=== PATIENT | female | born 1950 | race Caucasian/White ===

== ENCOUNTER → 2017-11-02 | Outpatient (CLI) | payer MEDICARE, OTHER ==
[~2017-11-02] MED LIST: ARIMIDEX PO; ASPIR 8181 MG PO; AZITHROMYCIN 2250 MG PO; BENAZEPRIL HCL5 MG PO; CHEMO DRUGS; ESTRACE CREAM TOP; ESTRACE1 MG PO; FOLIC ACID1 MG PO; GLYCOTROL CAPS1 EACH PO; HYDROXYCHLOROQ200 M1 PO; KRILL OIL500 MG PO; LEVSIN0.125 MG PO; LORTAB 5-325 M1 EACH PO; LOTENSIN20 MG PO; MAGOX 400400 MG PO; MEDROLDOSEPACK PO; NAPROSYN500 MG PO; OMEPRAZOLE 20 M20 MG PO; ONDANSETRON HCL4 M2 PO; PEPCID20 MG PO; PHENERGAN 25 MG25 M1 PO; PRILOSEC 20 MG20 MG PO; STERIOID IM; TESSALON PERLE100 MG PO; TYLENOL325 MG PO; VITAMIN B-6100 MG PO; VITAMIN C500 MG/15 PO; VITAMIN D1000 UNI1; VITAMIN D35000 UNI1 PO; ZANAFLEX4 MG PO; ZPAK PO; [UNRECOGNIZED DRUG - OTHER] PO; [UNRECOGNIZED DRUG - OTHER] TOP
== END ==
LOC: M.RAD 14:36
DX: M25.551 Pain in right hip (principal)

== ENCOUNTER → 2017-12-21 | Outpatient (CLI) | payer MEDICARE, OTHER | LOC: M.RAD 09:00 | DX: M85.88 Other specified disorders of bone density and structure, other site (principal); Z78.0 Asymptomatic menopausal state ==

== ENCOUNTER 2018-01-10 13:08 | Emergency (ER) | payer MEDICARE, OTHER ==
[~2018-01-10] VITALS: Ht 157.5 cm; Wt 53.5 kg
[~2018-01-10 13:08] MED LIST changes: -AZITHROMYCIN 2250 MG PO; -LEVSIN0.125 MG PO; -PEPCID20 MG PO; -PRILOSEC 20 MG20 MG PO; -TESSALON PERLE100 MG PO; -VITAMIN C500 MG/15 PO
[2018-01-10 13:28] VITALS: BP 155/71
[2018-01-10] MEDS ORDERED: PRILOSEC 20 MG20 MG PO (13:37)
[2018-01-10] MEDS ORDERED: VITAMIN C500 MG/15 PO (13:37)
[2018-01-10] MEDS ORDERED: TESSALON PERLE100 MG PO (14:56)
[2018-01-10] MEDS ORDERED: AZITHROMYCIN 2250 MG PO (14:56)
== END 2018-01-10 15:11 | disposition home or self-care (01) ==
LOC: M.ERS 13:08
DX: J32.9 Chronic sinusitis, unspecified (principal); E78.00 Pure hypercholesterolemia, unspecified; M32.9 Systemic lupus erythematosus, unspecified; I10 Essential (primary) hypertension; Z90.710 Acquired absence of both cervix and uterus; Z85.43 Personal history of malignant neoplasm of ovary; Z88.1 Allergy status to other antibiotic agents; Z88.5 Allergy status to narcotic agent; Z88.8 Allergy status to other drugs, medicaments and biological substances

== ENCOUNTER → 2018-05-04 | Outpatient (CLI) | payer MEDICARE, OTHER ==
[~2018-05-04] MED LIST changes: +AZITHROMYCIN 2250 MG PO; +LEVSIN0.125 MG PO; +PEPCID20 MG PO; +PRILOSEC 20 MG20 MG PO; +TESSALON PERLE100 MG PO; +VITAMIN C500 MG/15 PO
== END ==
LOC: M.RAD 13:53
DX: Z12.31 Encounter for screening mammogram for malignant neoplasm of breast (principal)

== ENCOUNTER → 2018-05-24 | Outpatient (CLI) | payer MEDICARE, OTHER | LOC: M.RAD 09:59 | DX: M50.122 Cervical disc disorder at C5-C6 level with radiculopathy (principal); M48.02 Spinal stenosis, cervical region; M54.6 Pain in thoracic spine; M79.629 Pain in unspecified upper arm; I10 Essential (primary) hypertension; E78.00 Pure hypercholesterolemia, unspecified ==

== ENCOUNTER → 2018-05-25 | Outpatient (CLI) | payer MEDICARE, OTHER | LOC: M.ULTRA 05-19 09:04 | DX: M79.621 Pain in right upper arm (principal); R22.31 Localized swelling, mass and lump, right upper limb ==

== ENCOUNTER 2018-08-08 10:44 | Emergency (ER) | payer MEDICARE, OTHER ==
[~2018-08-08] VITALS: Ht 154.9 cm; Wt 53.5 kg
[~2018-08-08 10:44] MED LIST changes: -LEVSIN0.125 MG PO; -PEPCID20 MG PO
[2018-08-08 11:15] LABS: URINE BILIRUBIN NEGATIVE (Negative); URINE BLOOD NEGATIVE (Negative); URINE CLARITY CLEAR; URINE COLOR YELLOW; URINE GLUCOSE-RANDOM NEGATIVE (Negative); URINE KETONES NEGATIVE (Negative); URINE LEUKOCYTES-REFLEX NEGATIVE (Negative); URINE NITRITE-REFLEX NEGATIVE (Negative); URINE PROTEIN NEGATIVE (Negative); URINE SPECIFIC GRAVITY 1.025 (1.005-1.030); URINE UROBILINOGEN 0.2 E.U./dl (0.2-1.0)
[2018-08-08 11:20] LABS: ABSOLUTE BASOPHILS 0.1 thou/uL (0.0-0.2); ABSOLUTE EOSINOPHILS 0.1 thou/uL (0.0-0.7); ABSOLUTE LYMPHOCYTES 1.5 thou/uL (0.8-5.3); ABSOLUTE MONOCYTES 0.4 thou/uL (0.0-1.2); ABSOLUTE NEUTROPHILS 3.5 thou/uL (1.6-8.1); EOSINOPHILS 1.1 %; HEMATOCRIT 38.6 % (37.0-47.0); HEMOGLOBIN 12.7 gm/dL (12.0-15.0); LYMPHOCYTES 26.4 %; MCH 32.8 pg (26.0-34.0); MCV 99.5 fL (80.0-100.0); MONOCYTES 7.5 %; MPV 6.6 fl. (7.2-11.1); NUCLEATED RBCS 0 /100WBC; PLATELET COUNT* 215 thou/uL (150-400); RBC 3.88 mil/uL (4.20-5.00); RDW-CV 13.5 % (10.5-14.5); WBC 5.5 thou/uL (4.0-11.0)
[2018-08-08 11:28] LABS: CALCIUM 9.5 mg/dL (8.5-10.1); POTASSIUM 3.9 mmol/L (3.5-5.1)
[2018-08-08 11:33] LABS: ALBUMIN 3.9 g/dL (3.4-5.0); TOTAL BILIRUBIN 0.5 mg/dL (<0.1-1.0)
[2018-08-08 13:47] VITALS: BP 145/60
== END 2018-08-08 13:47 | disposition home or self-care (01) ==
LOC: M.ERS 10:44
PROVIDERS: Physician Assistant Surgical
DX: R10.31 Right lower quadrant pain (principal); R10.32 Left lower quadrant pain; R19.7 Diarrhea, unspecified; E78.00 Pure hypercholesterolemia, unspecified; M32.9 Systemic lupus erythematosus, unspecified; I10 Essential (primary) hypertension; Z88.1 Allergy status to other antibiotic agents; Z88.5 Allergy status to narcotic agent; Z88.8 Allergy status to other drugs, medicaments and biological substances; Z87.440 Personal history of urinary (tract) infections; Z90.710 Acquired absence of both cervix and uterus; Z85.43 Personal history of malignant neoplasm of ovary

== ENCOUNTER 2018-08-19 12:53 | Inpatient (IN) | payer MEDICARE, OTHER ==
[~2018-08-19] VITALS: Ht 154.9 cm; Wt 52.2 kg
[2018-08-19 12:55] VITALS: BP 100/80
[2018-08-19] MEDS ORDERED: LEVSIN0.125 MG PO (13:00)
[2018-08-19 13:14] LABS: ABSOLUTE LYMPHOCYTES 1.4 thou/uL (0.8-5.3); ABSOLUTE MONOCYTES 0.3 thou/uL (0.0-1.2); ABSOLUTE NEUTROPHILS 2.8 thou/uL (1.6-8.1); BASOPHILS 0.9 %; EOSINOPHILS 0.9 %; HEMOGLOBIN 12.8 gm/dL (12.0-15.0); LYMPHOCYTES 29.4 %; MCH 33.3 pg (26.0-34.0); MCHC 33.7 g/dL (28.0-37.0); MCV 98.9 fL (80.0-100.0); MONOCYTES 7.3 %; MPV 6.6 fl. (7.2-11.1); NUCLEATED RBCS 0 /100WBC; PLATELET COUNT* 225 thou/uL (150-400); POLYS 61.5 %; RBC 3.84 mil/uL (4.20-5.00); RDW-CV 13.6 % (10.5-14.5); WBC 4.6 thou/uL (4.0-11.0)
[2018-08-19 13:26] LABS: APTT 24.5 Seconds (25.0-31.3)
[2018-08-19 13:32] LABS: CALCIUM 9.4 mg/dL (8.5-10.1); CREATININE 0.9 mg/dL (0.6-1.3); POTASSIUM 3.9 mmol/L (3.5-5.1)
[2018-08-19 13:43] LABS: ALBUMIN 3.8 g/dL (3.4-5.0); CK-MB MASS 1.4 ng/mL (<0.5-3.6); MAGNESIUM 1.9 mg/dL (1.8-2.4); TOTAL BILIRUBIN 0.4 mg/dL (<0.1-1.0); TOTAL PROTEIN 6.8 g/dL (6.4-8.2); TROPONIN-I LEVEL 0.06 ng/mL (<0.06)
[2018-08-19 14:45] VITALS: BP 176/59
[2018-08-19 15:05] VITALS: BP 143/60
[2018-08-19] MEDS ORDERED: BENAZEPRIL HCL5 MG PO (15:32)
--- NOTE | 2018-08-19 16:44 | EXE ---
[place] [address] STRESS ECHOCARDIOGRAM Name: CYNTHIA DUMONT Room: [address] IN [facility]#: [id number] Admission: 08/19/18 Attend Phys: Amrik Caballero Discharge: Date of : 48 Date of Service: 08/19/18 1644 Report #: [id number] THIS REPORT FOR: //name// APPROVED REPORT Study performed: 08/19/2018 15:57:41 Exam: Stress Echocardiogram Indication: Chest pain Patient Location: ER Stress Nurse: Jill Mccord RN Supervising Physician: David Bautista MD Status: routine Ht: 5 ft 1 in HR: 83 bpm BP: 156/69 mmHg Rhythm: NSR Medical History Medications: ASA Cardiac Risk Factors: HTN, Hyperlipidemia, FHX of CAD Procedure The patient underwent an Exercise Stress Test using the Jamil Protocol. Blood pressure, heart rate, and EKG were monitored. An Echocardiogram was performed by computer service technician in four stages in quad fashion. At peak stress, four selected images were obtained and placed side by side with resting images for comparison. Stress Test Details Stress Test: Exercise stress testing was performed using a Jamil protocol. HR Resting HR: 83 bpm Max Heart Rate (APMHR): 151 bpm Max HR Achieved: 139 bpm Target HR (85% APMHR): 128 bpm % of APMHR: 92 Recovery HR: 81 bpm HR response to stress: Normal HR response to stress BP Resting BP: 156/69 mmHg Max BP: 182/56 mmHg Recovery BP: 145/72 [place] [address] STRESS ECHOCARDIOGRAM Name: CYNTHIA DUMONT Room: [address] IN [facility]#: [id number] Admission: 08/19/18 Attend Phys: Amrik Caballero Discharge: Date of : 48 Date of Service: 08/19/18 1644 Report #: [id number] Resting ECG: Sinus Rhythm Stress ECG: Sinus Tachycardia ST Change: None Arrhythmia: None Recovery ECG: Sinus Rhythm, normal EKG Recovery ST Change: None Recovery Arrhythmia: None Clinical Reason for Termination: Dyspnea, Maximal effort Exercise duration: 4 min 17 sec Exercise capacity: 6.15 METs The patient tolerated standard Jamil protocol exercise without significant symptoms. Stress ECG Conclusion The baseline 12-lead EKG show sinus rhythm with no significant ST or T wave abnormalities. EKGs obtained during and post exercise showed sinus rhythm and sinus tachycardia with no significant ST or T wave changes when compared to baseline. There were no stress-induced arrhythmias. Pre-Stress Echo The resting Echocardiogram showed normal left ventricular contractility with an estimated Ejection Fraction of about 55-60%. Post-Stress Echo The stress Echocardiogram showed normal left ventricular contractility with an estimated Ejection Fraction of about >70%. Clinical No clinical or ECG evidence for ischemia. Conclusion Clinical Response: Non-ischemic Exercise Capacity: Average Stress ECG Response: Non-ischemic Stress Echo Images: Non-ischemic The left ventricle is normal in size and wall thickness in both the rest and stress images. Other Information Study Quality: Excellent <Conclusion> [place] [address] STRESS ECHOCARDIOGRAM Name: CYNTIHA DUMONT Room: [address] IN [facility].#: [id number] Admission: 08/19/18 Attend Phys: Amrik Caballero Discharge: Date of : 48 Date of Service: 08/19/181643 Report #: [id number] The left ventricle is normal in size and wall thickness in both the rest and stress images. <ELECTRONICALLY SIGNED> By: Renzo Caballero MD, FACC 08/19/181643 43 43 Renzo Caballero MD, FACC /INF
--- NOTE | 2018-08-19 17:06 | EKG ---
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
--- NOTE | 2018-08-19 22:11 | NUR ---
ASSUMED PT CARE AT 1915 REPORT RECEIVED FROM NURSE . PT IS ALERT AWAKE ORIENTED X4. SINUS RYTHM ON THE SUPERVISOR PROPERTIES. ON RA AND O2 SATURATION REMAINS ABOVE 95%. PT DOES NOT HAVE ANY HS MEDICATION SCHEDULED. NO COMPLAINT OF PAIN EITHER. ASSESSEMENT PERFORMED. REFER TO CHARTING. IV LINES ARE PATENT. WILL CONTINUE TO MONITOR.
--- NOTE | 2018-08-19 23:34 | NUR ---
EKG PERFOREMED ORDERED. SINUS RYTHM
[2018-08-20 00:23] VITALS: BP 102/53
[2018-08-20 04:15] VITALS: BP 121/57
[2018-08-20 07:51] VITALS: BP 108/49
--- NOTE | 2018-08-20 09:32 | NUR ---
ASSUMED CARE OF PT THIS AM AROUND 0715- CENTRAL SUPPLY ASSISTANT IN PLACE ORDERED, TRACING SR- UPON ASSESSMENT PT NOTED TO BE RESTING IN BED, WATCHING TV- PT A&O X4- CONTINENT OF BOWEL AND BLADDER- UP AD-JOHNNA IN ROOM, STEADY GAIT NOTED- LCTA, RESP EVEN AND UN-LABORED- VSS, O2 SAT 100% ON RA- ABDOMEN SOFT/ROUND/NON-TENDER, BS X4 QUADS- LAST BM REPORTED 08/19/18- IV NOTED TO LEFT AC INTACT AND SL- GOOD PO INTAKE NOTED THIS AM WITH BREAKFAST- PT RATES DISCOMFORT 10/28 TO CHEST THIS AM-PT EXPRESSES WISHES TO BE D/C'D THIS AM- CALL LIGHT AND PERSONAL BELONGINGS WITH IN REACH- HOURLY ROUNDS IN PLACE R/T SAFETY/NEEDS- ALL NEEDS MET AT THIS TIME-WCTM
--- NOTE | 2018-08-20 11:08 | NUR ---
Pt is A&O. Resides at home with her . Active and independent. No DME. Hx of HH with [facility] in 2016. No hx of skilled. Goal is home at or. No needs anticipated.
[2018-08-20 12:00] VITALS: BP 157/55
--- NOTE | 2018-08-20 12:07 | EKG ---
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
[2018-08-20] MEDS ORDERED: PEPCID20 MG PO (12:33)
[2018-08-20 12:34] VITALS: BP 157/55
[2018-08-20 12:51] VITALS: BP 157/55
--- NOTE | 2018-08-20 12:51 | NUR ---
ORDERS RECIEVIED FOR OKAY TO D/C TO HOME THIS SHIFT PER - IV TO LEFT AC D/C'D PRIOR TO D/C ALONG WITH CLINICAL PARTNER PRIOR TO D/C- D/C EDUCATION/TEACHING GIVEN TO PT PRIOR TO D/C WITH ALL QUESTIONS AND CONCERNS ADDRESSED- F/U COMMUNICATED, WITH VERBAL UNDERSTANDING RECIEVIED PER PT-WRITTEN EDUCATION ALONG WITH SCRIPTS PROVIDED TO PT AT TIME OF D/C- PT BELONGING PACKED AND ACCOUNTED FOR PER PT AND -PT CURRNELTY GETTING DRESSED AWAITING TO D/C- ALL NEEDS MET AT THIS TIME-WCTM
== END 2018-08-20 13:09 | disposition home or self-care (01) | DRG 206 ==
LOC: M.ERS 12:53 → M.2W 14:23 → M.TBA-ER 14:23 → M.2W 14:55
PROVIDERS: Family Medicine; ADMIT Internal Medicine
DX: M94.0 Chondrocostal junction syndrome [Tietze] (principal); I10 Essential (primary) hypertension; E06.3 Autoimmune thyroiditis; Z90.710 Acquired absence of both cervix and uterus; Z85.43 Personal history of malignant neoplasm of ovary; Z88.6 Allergy status to analgesic agent; Z88.1 Allergy status to other antibiotic agents; Z88.8 Allergy status to other drugs, medicaments and biological substances; Z82.49 Family history of ischemic heart disease and other diseases of the circulatory system; Z83.3 Family history of diabetes mellitus; Z79.82 Long term (current) use of aspirin; Z79.899 Other long term (current) drug therapy; Z86.2 Personal history of diseases of the blood and blood-forming organs and certain disorders involving the immune mechanism

== ENCOUNTER → 2018-11-01 | Outpatient (CLI) | payer MEDICARE, OTHER ==
[~2018-11-01] MED LIST changes: +LEVSIN0.125 MG PO; +PEPCID20 MG PO
== END ==
LOC: M.RAD 14:28
DX: M79.601 Pain in right arm (principal); M25.521 Pain in right elbow; M25.511 Pain in right shoulder; M54.5 Low back pain; W19.XXXA Unspecified fall, initial encounter

== ENCOUNTER → 2018-12-15 | Outpatient (CLI) | payer MEDICARE, OTHER | LOC: M.MRI 12-13 13:30 | DX: M50.222 Other cervical disc displacement at C5-C6 level (principal); M48.02 Spinal stenosis, cervical region; M25.78 Osteophyte, vertebrae; M54.6 Pain in thoracic spine; M54.5 Low back pain; F41.9 Anxiety disorder, unspecified; Z88.8 Allergy status to other drugs, medicaments and biological substances ==

== ENCOUNTER → 2018-12-17 | Outpatient (CLI) | payer MEDICARE, OTHER | LOC: M.MRI 12-02 11:32 | DX: M54.5 Low back pain (principal); M54.6 Pain in thoracic spine; Z88.8 Allergy status to other drugs, medicaments and biological substances; Z88.5 Allergy status to narcotic agent; Z88.1 Allergy status to other antibiotic agents; Z88.7 Allergy status to serum and vaccine; Z85.43 Personal history of malignant neoplasm of ovary ==

== ENCOUNTER → 2019-02-09 | Outpatient (CLI) | payer MEDICARE, OTHER | LOC: M.CT 13:24 | DX: K57.30 Diverticulosis of large intestine without perforation or abscess without bleeding (principal); Z90.49 Acquired absence of other specified parts of digestive tract ==

== ENCOUNTER → 2019-06-09 | Outpatient (CLI) | payer MEDICARE, OTHER | LOC: M.RAD 13:20 | DX: R05 Cough (principal); R53.83 Other fatigue; R07.89 Other chest pain ==

== ENCOUNTER → 2019-07-20 | Outpatient (CLI) | payer MEDICARE, OTHER ==
[~2019-07-20] MED LIST changes: +CARTIA XT120 M1 PO; +HYOSCYAMINE0.125 M1 SUBLING; +PROPRANOLOL 20M20 M1 PO; +TAPAZOLE10 MG PO
== END ==
LOC: M.RAD 13:08
DX: M47.814 Spondylosis without myelopathy or radiculopathy, thoracic region (principal); M48.04 Spinal stenosis, thoracic region; M51.34 Other intervertebral disc degeneration, thoracic region; M81.8 Other osteoporosis without current pathological fracture; Z88.8 Allergy status to other drugs, medicaments and biological substances

== ENCOUNTER → 2019-07-22 | Outpatient (CLI) | payer MEDICARE, OTHER | LOC: M.ULTRA 07-21 09:30 | DX: R74.8 Abnormal levels of other serum enzymes (principal); D17.79 Benign lipomatous neoplasm of other sites; N28.89 Other specified disorders of kidney and ureter ==

== ENCOUNTER → 2019-08-03 | Outpatient (CLI) | payer MEDICARE, OTHER | LOC: M.ULTRA 14:05 | DX: E05.90 Thyrotoxicosis, unspecified without thyrotoxic crisis or storm (principal); E04.1 Nontoxic single thyroid nodule; R13.10 Dysphagia, unspecified; Z88.8 Allergy status to other drugs, medicaments and biological substances ==

== ENCOUNTER 2019-08-04 12:41 | Inpatient (IN) | payer MEDICARE, OTHER ==
[~2019-08-04] VITALS: Ht 154.9 cm; Wt 49.9 kg
[~2019-08-04 12:41] MED LIST changes: -CARTIA XT120 M1 PO; -HYOSCYAMINE0.125 M1 SUBLING; -PROPRANOLOL 20M20 M1 PO; -TAPAZOLE10 MG PO
[2019-08-04 12:44] VITALS: BP 144/66
[2019-08-04] MEDS ORDERED: HYOSCYAMINE0.125 M1 SUBLING (12:53)
[2019-08-04] MEDS ORDERED: CARTIA XT120 M1 PO (12:54)
[2019-08-04 13:49] LABS: ABSOLUTE LYMPHOCYTES 1.4 thou/uL (0.8-5.3); ABSOLUTE MONOCYTES 0.8 thou/uL (0.0-1.2); ABSOLUTE NEUTROPHILS 4.3 thou/uL (1.6-8.1); BASOPHILS 0.5 %; EOSINOPHILS 0.6 %; HEMATOCRIT 35.5 % (37.0-47.0); HEMOGLOBIN 12.1 gm/dL (12.0-15.0); LYMPHOCYTES 21.4 %; MCH 31.7 pg (26.0-34.0); MCHC 34.1 g/dL (28.0-37.0); MONOCYTES 11.7 %; MPV 7.3 fl. (7.2-11.1); NUCLEATED RBCS 0 /100WBC; PLATELET COUNT* 223 thou/uL (150-400); POLYS 65.8 %; RBC 3.81 mil/uL (4.20-5.00); RDW-CV 12.8 % (10.5-14.5); WBC 6.5 thou/uL (4.0-11.0)
[2019-08-04 13:56] LABS: CALCIUM 10.4 mg/dL (8.5-10.1); CREATININE 0.8 mg/dL (0.6-1.3); POTASSIUM 4.2 mmol/L (3.5-5.1)
[2019-08-04 14:07] LABS: ALBUMIN 3.4 g/dL (3.4-5.0); TOTAL BILIRUBIN 0.4 mg/dL (<0.1-1.0); TOTAL PROTEIN 6.7 g/dL (6.4-8.2)
[2019-08-04 14:33] LABS: INR 0.9; PROTIME 9.7 Seconds (9.20-11.50)
--- NOTE | 2019-08-04 14:34 | EKG ---
[place] [address] ELECTROCARDIOGRAM REPORT Name: CYNTHIA DUMONT Room: [facility]#: [id number] Admission: 08/04/19 Attend Phys: Discharge: Date of : 48 Report #: [id number] THIS REPORT FOR: //name// [facility] ED Test Date: 2019-08-04 Test Time: 12:50:22 Pat Name: CYNTHIA DUMONT Department: Room: Gender: F Engineer And Geologist: TEAGAN : 1950 Requested By: Tiffani Parsons Order Number: [id number] Reading MD: Renzo Caballero Measurements Intervals [place] Rate: 106 P: 71 [place]: 130 QRS: 26 QRSD: 79 T: 57 QT: 301 QTc: 400 Interpretive Statements Sinus tachycardia Possible left atrial enlargement Baseline wander in lead(s) II,III,aVF Compared to ECG 08/19/2018 23:11:59 Sinus rhythm no longer present Electronically Signed On 08-04-2019 14:34:04 CDT by Renzo Caballero [email or web address] <ELECTRONICALLY SIGNED> By: Renzo Caballero MD, [facility] 08/04/19 1434 1250 1250 Renzo Caballero MD, FAC /EPI
--- NOTE | 2019-08-04 17:50 | NUR ---
DINNER TRAY ORDERED FOR PT
--- NOTE | 2019-08-04 18:54 | NUR ---
REPORT GIVEN TO CLIVE RN
[2019-08-04 19:00] VITALS: BP 127/56
--- NOTE | 2019-08-04 19:15 | NUR ---
RECIEVED REPORT FROM ER AROUND 1849. PT ARRIVED TO TELE FLOOR AROUND 1909. PT SETTLED IN ROOM, SIDING INSTALLER PLACED, CALL LIGHT WITH IN REACH. REPORT GIVEN TO MAURICE FLORES.
[2019-08-04 21:30] VITALS: BP 145/43
[2019-08-05] VITALS: BP 120/46
[2019-08-05 04:00] VITALS: BP 152/59
--- NOTE | 2019-08-05 06:52 | NUR ---
ASSESSMENT COMPLETED CHARTED. VSS. SEE MAR. SEE CHARTING. PROGRESSING TOWARDS GOALS. HOURLY ROUNDING FOR SAFETY.
[2019-08-05 07:00] VITALS: BP 150/54
--- NOTE | 2019-08-05 10:19 | NUR ---
Pt is A&O. Resides at home with her . Active and independent. Pt has a cpap through [facility], but states that she doesn't sleep with it, plans to have another sleep study completed. Hx of [facility]. No hx of SNF. Pt current with outpt PT and plans to resume at tx. Goal is home at dc, no needs anticipated.
[2019-08-05 12:53] VITALS: BP 145/49
[2019-08-05] MEDS ORDERED: TAPAZOLE10 MG PO (13:46)
[2019-08-05] MEDS ORDERED: PROPRANOLOL 20M20 M1 PO (13:48)
[2019-08-05 13:50] VITALS: BP 145/49
== END 2019-08-05 14:15 | disposition home or self-care (01) | DRG 643 ==
LOC: M.ERS 12:41 → M.2W 15:52 → M.TBA-ER 15:52 → M.2W 19:12
PROVIDERS: Personal Emergency Response Attendant; ADMIT Internal Medicine
DX: E05.91 Thyrotoxicosis, unspecified with thyrotoxic crisis or storm (principal); I50.41 Acute combined systolic (congestive) and diastolic (congestive) heart failure; B17.9 Acute viral hepatitis, unspecified; K76.89 Other specified diseases of liver; I11.0 Hypertensive heart disease with heart failure; Z90.710 Acquired absence of both cervix and uterus; Z79.1 Long term (current) use of non-steroidal anti-inflammatories (NSAID); Z79.899 Other long term (current) drug therapy; Z88.5 Allergy status to narcotic agent; Z88.8 Allergy status to other drugs, medicaments and biological substances; Z88.1 Allergy status to other antibiotic agents

== ENCOUNTER → 2019-08-23 | Outpatient (CLI) | payer MEDICARE, OTHER ==
[~2019-08-23] MED LIST changes: +CARTIA XT120 M1 PO; +HYOSCYAMINE0.125 M1 SUBLING; +PROPRANOLOL 20M20 M1 PO; +TAPAZOLE10 MG PO
[2019-08-23 11:11] LABS: % SATURATION 23 % (20-39); IRON 50 ug/dL (50-175)
[2019-08-24 07:12] LABS: HEPATITIS B SURFACE AG Negative (Negative)
[2019-08-25 07:12] LABS: ANA INTERPRETATION Negative (Negative)
== END ==
LOC: M.LAB 09:06
PROVIDERS: Internal Medicine Gastroenterology
DX: D50.9 Iron deficiency anemia, unspecified (principal); R94.5 Abnormal results of liver function studies; Z85.43 Personal history of malignant neoplasm of ovary

== ENCOUNTER → 2019-09-01 | Outpatient (CLI) | payer MEDICARE, OTHER ==
[2019-09-01 12:07] LABS: ALBUMIN 2.7 g/dL (3.4-5.0); CALCIUM 9.2 mg/dL (8.5-10.1); CREATININE 0.8 mg/dL (0.6-1.3); POTASSIUM 4.2 mmol/L (3.5-5.1); TOTAL BILIRUBIN 0.3 mg/dL (<0.1-1.0); TOTAL PROTEIN 6.2 g/dL (6.4-8.2)
== END ==
LOC: M.RAD 11:18 → M.LAB 11:18
PROVIDERS: Internal Medicine Gastroenterology
DX: R05 Cough (principal); R09.89 Other specified symptoms and signs involving the circulatory and respiratory systems; D50.9 Iron deficiency anemia, unspecified; D56.9 Thalassemia, unspecified; R94.5 Abnormal results of liver function studies; R79.89 Other specified abnormal findings of blood chemistry

== ENCOUNTER → 2019-10-31 | Outpatient (CLI) | payer MEDICARE, OTHER ==
[2019-10-31 10:46] LABS: ALBUMIN 3.4 g/dL (3.4-5.0); DIRECT BILIRUBIN 0.1 mg/dL (<0.1-0.3); TOTAL BILIRUBIN 0.4 mg/dL (<0.1-1.0); TOTAL PROTEIN 6.5 g/dL (6.4-8.2)
== END ==
LOC: M.LAB 09:59
DX: R74.8 Abnormal levels of other serum enzymes (principal); R94.5 Abnormal results of liver function studies

== ENCOUNTER → 2019-11-14 | Outpatient (CLI) | payer MEDICARE, OTHER ==
[2019-11-14 14:47] LABS: ABSOLUTE EOSINOPHILS 0.1 thou/uL (0.0-0.7); ABSOLUTE LYMPHOCYTES 1.1 thou/uL (0.8-5.3); ABSOLUTE MONOCYTES 0.4 thou/uL (0.0-1.2); ABSOLUTE NEUTROPHILS 2.8 thou/uL (1.6-8.1); BASOPHILS 0.6 %; EOSINOPHILS 1.6 %; HEMATOCRIT 36.1 % (37.0-47.0); HEMOGLOBIN 12.3 gm/dL (12.0-15.0); LYMPHOCYTES 25.4 %; MCH 32.4 pg (26.0-34.0); MCHC 34.2 g/dL (28.0-37.0); MCV 94.7 fL (80.0-100.0); MONOCYTES 9.5 %; MPV 7.1 fl. (7.2-11.1); NUCLEATED RBCS 0 /100WBC; PLATELET COUNT* 218 thou/uL (150-400); POLYS 62.9 %; RBC 3.81 mil/uL (4.20-5.00); WBC 4.5 thou/uL (4.0-11.0)
[2019-11-14 15:00] LABS: ALBUMIN 3.6 g/dL (3.4-5.0); CALCIUM 9.1 mg/dL (8.5-10.1); POTASSIUM 4.3 mmol/L (3.5-5.1); TOTAL BILIRUBIN 0.3 mg/dL (<0.1-1.0); TOTAL PROTEIN 7.1 g/dL (6.4-8.2)
== END ==
LOC: M.CT 14:24
PROVIDERS: Internal Medicine
DX: K76.89 Other specified diseases of liver (principal); K57.30 Diverticulosis of large intestine without perforation or abscess without bleeding; N39.0 Urinary tract infection, site not specified; I70.0 Atherosclerosis of aorta; Z90.49 Acquired absence of other specified parts of digestive tract

== ENCOUNTER → 2019-12-22 | Outpatient (CLI) | payer MEDICARE, OTHER | LOC: M.RAD 09:38 | DX: M25.511 Pain in right shoulder (principal); M54.5 Low back pain; M54.2 Cervicalgia; G89.29 Other chronic pain ==

== ENCOUNTER → 2020-02-14 | Outpatient (CLI) | payer MEDICARE, OTHER | LOC: M.RAD 01-16 09:00 | DX: M85.88 Other specified disorders of bone density and structure, other site (principal); Z78.0 Asymptomatic menopausal state ==

== ENCOUNTER → 2020-02-21 | Outpatient (CLI) | payer MEDICARE, OTHER | LOC: M.LAB 13:23 | DX: E05.90 Thyrotoxicosis, unspecified without thyrotoxic crisis or storm (principal) ==

== ENCOUNTER → 2020-03-30 | Outpatient (CLI) | payer MEDICARE, OTHER | LOC: M.RAD 14:47 | PROVIDERS: ATTEND Registered Nurse Diabetes Educator | DX: Z12.31 Encounter for screening mammogram for malignant neoplasm of breast (principal) ==

== ENCOUNTER → 2020-04-16 | Outpatient (CLI) | payer MEDICARE, OTHER | END | disposition home or self-care (01) | LOC: M.RAD 12:42 | PROVIDERS: ATTEND Registered Nurse Diabetes Educator | DX: M25.551 Pain in right hip (principal); Z79.899 Other long term (current) drug therapy; Z98.890 Other specified postprocedural states ==

== ENCOUNTER → 2020-06-01 | Outpatient (CLI) | payer MEDICARE, OTHER | LOC: M.RAD 14:33 | PROVIDERS: ATTEND Registered Nurse Diabetes Educator | DX: C34.11 Malignant neoplasm of upper lobe, right bronchus or lung (principal); Z98.890 Other specified postprocedural states ==

== ENCOUNTER 2020-06-10 18:18 | Emergency (ER) | payer MEDICARE, OTHER ==
[~2020-06-10] VITALS: Ht 157.5 cm; Wt 49.4 kg
[2020-06-10 18:41] LABS: URINE BILIRUBIN NEGATIVE (Negative); URINE BLOOD NEGATIVE (Negative); URINE CLARITY CLEAR; URINE COLOR YELLOW; URINE GLUCOSE-RANDOM NEGATIVE (Negative); URINE KETONES NEGATIVE (Negative); URINE LEUKOCYTES-REFLEX TRACE (Negative); URINE NITRITE-REFLEX NEGATIVE (Negative); URINE PROTEIN NEGATIVE (Negative); URINE UROBILINOGEN 0.2 E.U./dl (0.2-1.0)
[2020-06-10 18:46] LABS: SQUAMOUS NONE SEEN /LPF (0-3); URINE WBC-REFLEX 0-5 Rare /HPF (0-5)
[2020-06-10 18:47] LABS: BACTERIA-REFLEX 1-9 Few /HPF (None Seen); CASTS None Seen /LPF (None Seen); CRYSTALS None Seen /LPF (None Seen); MUCUS None Seen strn/LPF (None Seen); URINE RBC None Seen /HPF (0-2)
[2020-06-10 18:52] LABS: ABSOLUTE BASOPHILS 0.1 thou/uL (0.0-0.2); ABSOLUTE EOSINOPHILS 0.1 thou/uL (0.0-0.7); ABSOLUTE LYMPHOCYTES 2.1 thou/uL (0.8-5.3); ABSOLUTE MONOCYTES 0.4 thou/uL (0.0-1.2); ABSOLUTE NEUTROPHILS 3.9 thou/uL (1.6-8.1); BASOPHILS 0.8 %; EOSINOPHILS 1.3 %; HEMATOCRIT 36.3 % (37.0-47.0); HEMOGLOBIN 12.4 gm/dL (12.0-15.0); MCH 32.8 pg (26.0-34.0); MCHC 34.1 g/dL (28.0-37.0); MCV 96.1 fL (80.0-100.0); MONOCYTES 6.7 %; MPV 6.7 fl. (7.2-11.1); NUCLEATED RBCS 0 /100WBC; PLATELET COUNT* 257 thou/uL (150-400); POLYS 59.2 %; RBC 3.78 mil/uL (4.20-5.00); RDW-CV 13.2 % (10.5-14.5); WBC 6.6 thou/uL (4.0-11.0)
[2020-06-10 19:03] LABS: CALCIUM 8.6 mg/dL (8.5-10.1); CREATININE 1.1 mg/dL (0.6-1.3); POTASSIUM 3.8 mmol/L (3.5-5.1)
[2020-06-10 19:08] LABS: ALBUMIN 3.9 g/dL (3.4-5.0); TOTAL BILIRUBIN 0.3 mg/dL (<0.1-1.0); TOTAL PROTEIN 6.7 g/dL (6.4-8.2)
[2020-06-10] MEDS ORDERED: FLAGYL500 M1 PO (20:57)
[2020-06-10] MEDS ORDERED: ONDANSETRON HCL4 M2 PO (20:57)
[2020-06-10 21:05] VITALS: BP 108/62
--- NOTE | 2020-06-11 09:33 | EKG ---
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 06/11/20 0933 1836 1836 Kris Aburto MD, [facility] /EPI
== END 2020-06-10 21:06 | disposition home or self-care (01) ==
LOC: M.ERS 18:18
PROVIDERS: Nurse Practitioner Psychiatric/Mental Health
DX: R10.84 Generalized abdominal pain (principal); I10 Essential (primary) hypertension; E78.00 Pure hypercholesterolemia, unspecified; Z90.710 Acquired absence of both cervix and uterus; Z87.440 Personal history of urinary (tract) infections; Z85.43 Personal history of malignant neoplasm of ovary; Z88.1 Allergy status to other antibiotic agents; Z88.6 Allergy status to analgesic agent; Z88.8 Allergy status to other drugs, medicaments and biological substances

== ENCOUNTER → 2020-06-26 | Outpatient (CLI) | payer MEDICARE, OTHER ==
[~2020-06-26] MED LIST changes: +FLAGYL500 M1 PO
== END ==
LOC: M.LAB 12:11
PROVIDERS: ATTEND Internal Medicine
DX: E05.90 Thyrotoxicosis, unspecified without thyrotoxic crisis or storm (principal)

== ENCOUNTER → 2020-07-03 | Outpatient (CLI) | payer MEDICARE, OTHER ==
[2020-07-03 09:18] LABS: CALCIUM 8.8 mg/dL (8.5-10.1); CREATININE 1.2 mg/dL (0.6-1.3); POTASSIUM 4.1 mmol/L (3.5-5.1)
== END ==
LOC: M.CT 08:46
PROVIDERS: ATTEND Registered Nurse Diabetes Educator
DX: K57.30 Diverticulosis of large intestine without perforation or abscess without bleeding (principal); I70.0 Atherosclerosis of aorta

== ENCOUNTER → 2020-09-26 | Outpatient (CLI) | payer MEDICARE, OTHER | LOC: M.CT 12:07 | PROVIDERS: ATTEND Internal Medicine | DX: K57.30 Diverticulosis of large intestine without perforation or abscess without bleeding (principal); Z87.19 Personal history of other diseases of the digestive system ==

== ENCOUNTER → 2020-10-26 | Outpatient (CLI) | payer MEDICARE, OTHER | LOC: M.CT 13:02 | PROVIDERS: ATTEND Registered Nurse Diabetes Educator | DX: K57.30 Diverticulosis of large intestine without perforation or abscess without bleeding (principal); I70.0 Atherosclerosis of aorta ==

== ENCOUNTER → 2020-11-09 | Outpatient (CLI) | payer MEDICARE, OTHER | LOC: M.LAB 11:52 | PROVIDERS: ATTEND Internal Medicine | DX: E05.90 Thyrotoxicosis, unspecified without thyrotoxic crisis or storm (principal) ==

== ENCOUNTER → 2020-12-06 | Outpatient (CLI) | payer MEDICARE, OTHER | LOC: M.CT 16:00 | PROVIDERS: ATTEND Registered Nurse Diabetes Educator | DX: K57.30 Diverticulosis of large intestine without perforation or abscess without bleeding (principal) ==

== ENCOUNTER → 2020-12-11 | Outpatient (CLI) | payer MEDICARE, OTHER | LOC: M.RAD 09:52 | PROVIDERS: ATTEND Registered Nurse Diabetes Educator | DX: M47.816 Spondylosis without myelopathy or radiculopathy, lumbar region (principal); M43.16 Spondylolisthesis, lumbar region; M54.5 Low back pain ==

== ENCOUNTER 2021-01-20 08:19 | Emergency (ER) | payer MEDICARE, OTHER ==
[~2021-01-20] VITALS: Ht 154.9 cm; Wt 43.5 kg
[2021-01-20 08:47] LABS: URINE BILIRUBIN NEGATIVE (Negative); URINE BLOOD NEGATIVE (Negative); URINE CLARITY CLEAR; URINE COLOR YELLOW; URINE GLUCOSE-RANDOM NEGATIVE (Negative); URINE KETONES NEGATIVE (Negative); URINE LEUKOCYTES-REFLEX NEGATIVE (Negative); URINE NITRITE-REFLEX NEGATIVE (Negative); URINE PROTEIN TRACE (Negative); URINE UROBILINOGEN 0.2 E.U./dl (0.2-1.0)
[2021-01-20 09:16] LABS: ABSOLUTE BASOPHILS 0.1 thou/uL (0.0-0.2); ABSOLUTE EOSINOPHILS 0.1 thou/uL (0.0-0.7); ABSOLUTE LYMPHOCYTES 0.6 thou/uL (0.8-5.3); ABSOLUTE MONOCYTES 0.5 thou/uL (0.0-1.2); ABSOLUTE NEUTROPHILS 2.2 thou/uL (1.6-8.1); BASOPHILS 1.9 %; EOSINOPHILS 3.1 %; HEMATOCRIT 34.2 % (37.0-47.0); HEMOGLOBIN 11.4 gm/dL (12.0-15.0); LYMPHOCYTES 16.7 %; MCH 33.4 pg (26.0-34.0); MCHC 33.4 g/dL (28.0-37.0); MCV 100.2 fL (80.0-100.0); MONOCYTES 14.1 %; MPV 6.8 fl. (7.2-11.1); NUCLEATED RBCS 0 /100WBC; PLATELET COUNT* 181 thou/uL (150-400); POLYS 64.2 %; RBC 3.41 mil/uL (4.20-5.00); RDW-CV 15.9 % (10.5-14.5); WBC 3.4 thou/uL (4.0-11.0)
[2021-01-20 09:20] LABS: CALCIUM 8.6 mg/dL (8.5-10.1); CREATININE 1.2 mg/dL (0.6-1.3); POTASSIUM 4.2 mmol/L (3.5-5.1)
[2021-01-20 09:25] LABS: ALBUMIN 3.6 g/dL (3.4-5.0); TOTAL BILIRUBIN 0.3 mg/dL (<0.1-1.0); TOTAL PROTEIN 6.8 g/dL (6.4-8.2)
[2021-01-20] MEDS ORDERED: AUGMENTIN 875-1 EACH PO (12:16)
[2021-01-20] MEDS ORDERED: PHENERGAN 25 MG25 M1 PO (12:16)
[2021-01-20] MEDS ORDERED: BENTYL 10 MG CA10 M1 PO (12:18)
[2021-01-20 12:30] VITALS: BP 165/87
[2021-01-20] MEDS ORDERED: METOPROLOL TART25 MG PO ×2 (23:37→23:38)
--- NOTE | 2021-01-21 11:22 | EKG ---
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: [place] : 1950 Requested By: Lexx Castellon Order Number: [id number] MD: David Bautista Measurements Intervals [place] Rate: 95 P: 62 [place]: 132 QRS: 36 QRSD: 77 T: 64 QT: 329 QTc: 414 Interpretive Statements Sinus rhythm Possible anteroseptal infarct, old Compared to ECG 06/10/2020 18:36:20 Possible anteroseptal scar persists Electronically Signed On 01-21-2021 11:22:28 CDT by David Bautista [email or web address] <ELECTRONICALLY SIGNED> By: David Bautista MD, [facility] 01/21/21 1122 10 10 David Bautista MD, [facility] /EPI
== END 2021-01-20 12:30 | disposition home or self-care (01) ==
LOC: M.ERS 08:19
PROVIDERS: Emergency Medicine Emergency Medical Services
DX: K52.9 Noninfective gastroenteritis and colitis, unspecified (principal); E78.00 Pure hypercholesterolemia, unspecified; M32.9 Systemic lupus erythematosus, unspecified; I10 Essential (primary) hypertension; Z88.1 Allergy status to other antibiotic agents; Z88.5 Allergy status to narcotic agent; Z88.8 Allergy status to other drugs, medicaments and biological substances; Z90.710 Acquired absence of both cervix and uterus; Z87.440 Personal history of urinary (tract) infections; Z85.43 Personal history of malignant neoplasm of ovary

== ENCOUNTER 2021-01-20 19:04 | Inpatient (IN) | payer MEDICARE, OTHER ==
[~2021-01-20] VITALS: Ht 154.9 cm; Wt 47.9 kg
--- NOTE | ~2021-01-20 | CON ---
[address] [address] CONSULTATION Name: MARCELTIFFANIEThomasCYNTHIA A Room: [place] [address] ADM IN [facility].#: [id number] Admission: 01/21/21 Attend Phys: Shea Cuellar MD Discharge: Date of : 48 Report #: [id number] THIS REPORT FOR: cc: Dasha Mcmillan Tammy RNP Khosla, Parveen K. MD ~ DATE OF SERVICE: 01/21/2021 HISTORY OF PRESENT ILLNESS: This is a 70-year-old female patient who was evaluated by me for an episode of speech difficulty she had. She had some dizziness, nausea, vomiting. She had some colitis at that time. Her symptoms are mostly resolved by this time. Review of systems indicated that she has been diagnosed with ovarian cancer. She said this is the second time and she is getting chemotherapy by an oncologist at [facility]. She does have some tinnitus in the year. She had undergone a CT scan of the head, which was reviewed and the patient showed chronic changes. I got it done with and without contrast after talking to the patient about potential side effects of contrast including dermatological complications, which are catastrophic. That showed a question of infarct, but the duration was not clear. I got an MRI of the brain done. MRI Indicates the patient has no acute changes. She does have chronic changes in the brain and there is no evidence of any metastasis. REVIEW OF SYSTEMS: A 14-point review of system was carried out and she feels back to normal. She does not complain of any eye symptoms. She does have some tinnitus. She is not having any chest pain or respiratory difficulty. She did have some abdominal symptom, which is better. She denies any symptoms. There is no musculoskeletal, constitutional, dermatological, hematological, psychiatric, throat, allergic symptom associated with present symptomatology. PAST MEDICAL HISTORY: Positive for ovarian carcinoma. FAMILY HISTORY: Unremarkable. SOCIAL HISTORY: She apparently does not abuse alcohol. PHYSICAL EXAMINATION: The patient is alert, responsive, able to follow simple and complex command. Her speech looks unremarkable to me. Memory and fund of knowledge is at her baseline. Cranial nerve examination 2-12 looks unremarkable. She moves all 4 extremities symmetrically. Her position sense is present. Her tone looks symmetrical. There is no meningeal sign. She is thinly built individual. Her blood pressure is 187/78, respiration is 17, pulse is 58, temperature is 96.4. Cardiac examination is unremarkable. No respiratory difficulty was noticed. No edema, cyanosis or jaundice is present. No thyroid masses present. [place] [address] CONSULTATION Name: CYNTHIA DUMONT Room: [place] [address] ADM IN .R.#: [id number] Admission: 01/21/21 Attend Phys: Shea Cuellar MD Discharge: Date of : 48 Report #: [id number] DIAGNOSTIC DATA: Her MCV is somewhat high at 101. CT and MRIs were reviewed and have been summarized above. IMPRESSION: This patient's MRI does not show any acute changes, but she does have chronic changes there. I am going to get a carotid Doppler done to see if there is any stenosis on the left side. I will also get a vitamin B12 done in this patient because MCV is trace high. She needs to be on antiplatelet therapy as well as statin. If carotid Doppler shows some abnormality, then we may consider intervention, but otherwise, a combination of antiplatelet therapy and statin will be the treatment of choice. Thank you very much for this referral. I saw the patient this evening and spent more than 50 minutes of time taking care of her and majority was spent counseling, coordinating, and reviewing her imaging studies, etc. By: 1544 2038Rah Randall MD /nt
[~2021-01-20 19:04] MED LIST changes: +AUGMENTIN 875-1 EACH PO; +BENTYL 10 MG CA10 M1 PO
[2021-01-20 19:10] VITALS: BP 195/100
[2021-01-20 21:04] LABS: HEMATOCRIT 34.6 % (37.0-47.0); HEMOGLOBIN 11.4 gm/dL (12.0-15.0); MCH 33.2 pg (26.0-34.0); MCHC 32.8 g/dL (28.0-37.0); MCV 101.2 fL (80.0-100.0); RBC 3.42 mil/uL (4.20-5.00); RDW-CV 16.4 % (10.5-14.5); WBC 4.9 thou/uL (4.0-11.0)
[2021-01-20 21:05] LABS: CALCIUM 8.8 mg/dL (8.5-10.1); CREATININE 1.2 mg/dL (0.6-1.3); POTASSIUM 3.9 mmol/L (3.5-5.1)
[2021-01-20 22:40] VITALS: BP 170/80
[2021-01-20 23:00] VITALS: BP 185/65
[2021-01-20] MEDS ORDERED: METOPROLOL TART25 MG PO ×2 (23:37→23:38)
[2021-01-21] VITALS (7 sets, daily range): BP systolic 103–222; BP diastolic 32–124
[2021-01-21 10:27] LABS: CHOLESTEROL 189 mg/dL (<200); HDL CHOLESTEROL 56 mg/dL (>40); LDL CHOLESTEROL 117 mg/dL (<100); TC:HDL 3.4 Ratio (Not establshd); TRIGLYCERIDE 80 mg/dL (<150); VLDL 16 mg/dL (<40)
[2021-01-21 10:28] LABS: SERUM ASSESSMENT Clear
--- NOTE | 2021-01-21 11:20 | EKG ---
[place] [address] ELECTROCARDIOGRAM REPORT Name: SURYNAVCYNTHIA Vanessa Room: [place] [address] ADM IN [facility].#: [id number] Admission: 01/21/21 Attend Phys: Shea Cuellar MD Discharge: Date of : 48 Date of Service: 01/20/21 0846 Report #: [id number] THIS REPORT FOR: //name// [facility] ED Test Date: 2021-01-20 Test Time: 08:46:23 Pat Name: CYNTHIA DUMONT Department: Room: [facility] Gender: F Senior Director Insight: SHERLYN : 1950 Requested By: Tiffani Parsons Order Number: [id number] Suresh MD: David Bautista Measurements Intervals [place] Rate: 79 P: 91 [place]: 132 QRS: 57 QRSD: 78 T: 63 QT: 380 QTc: 436 Interpretive Statements Sinus rhythm Compared to ECG 06/10/2020 18:36:20 No significant changes Electronically Signed On 01-21-2021 11:20:07 CDT by David Bautista [email or web address] <ELECTRONICALLY SIGNED> By: David Bautista MD, FACC 01/21/21 1120 0846 0846 David Bautista MD, [facility] /EPI
--- NOTE | 2021-01-21 13:59 | 2DMMODE ---
[place] [address] 2 D/M-MODE ECHOCARDIOGRAM Name: CYNTHIA DUMONT Room: [facility] ADM IN [place]#: [id number] Admission: 01/21/21 Attend Phys: Shea Cuellar MD Discharge: Date of : 48 Date of Service: 01/21/21 1359 Report #: [id number] THIS REPORT FOR: cc: Dasha Mcmillan Tammy RNP Holkins,David Bentiez MD [facility] ~ APPROVED REPORT Study performed: 01/21/2021 12:05:02 EXAM: Comprehensive 2D, Doppler, and color-flow Echocardiogram Patient Location: In-Patient Room #: [facility] Status: routine BSA: 1.39 HR: 60 bpm BP: 186/73 mmHg Rhythm: NSR Other Information Study Quality: Good Indications CVA/TIA Echo Enhancing Agent Indication: Rule out Shunt Agent(s) / Amount(s) Used: Agitated Saline 10 cc 2D Dimensions IVSd: 9.99 (7-11mm) LVOT Diam: 19.57 (18-24mm) LVDd: 45.69 mm PWd: 8.93 (7-11mm) Ascending Ao: 27.97 (22-36mm) LVDs: 26.42 (25-40mm) Aortic Root: 26.31 mm Volumes Left Atrial Volume (Systole) LA ESV Index: 21.80 mL/m2 Aortic Valve AoV Peak Cristino.: 1.14 m/s AO Peak Gr.: 5.22 mmHg LVOT Max P.41 mmHg AO Mean Gr.: 2.85 mmHg LVOT Mean P.20 [place] [address] 2 D/M-MODE ECHOCARDIOGRAM Name: CYNTHIA DUMONT Room: [address] IN [facility]#: [id number] Admission: 01/21/21 Attend Phys: Shea Cuellar MD Discharge: Date of : 48 Date of Service: 01/21/21 1359 Report #: [id number] LVOT Max V: 0.78 m/s AO V2 VTI: 26.08 cm LVOT Mean V: 0.50 m/s ABAD (VTI): 2.36 cm2 LVOT V1 VTI: 20.46 cm Mitral Valve E/A Ratio: 0.94 MV Decel. Time: 196.83 ms MV E Max Cristino.: 0.66 m/s MV PHT: 57.08 ms MVA (PHT): 3.85 cm2 TDI E/Lateral E': 8.25 E/Medial E': 7.33 Medial E' Cristino.: 0.09 m/s Lateral E' Cristino.: 0.08 m/s Pulmonary Valve PV Peak Cristino.: 0.79 m/s PV Peak Gr.: 2.51 mmHg Tricuspid Valve RAP Estimate: 5.00 mmHg TR Peak Gr.: 20.23 mmHg RVSP: 25.00 mmHg PA Pressure: 25.00 mmHg Left Ventricle The left ventricle is normal size. There is normal LV segmental wall motion. There is normal left ventricular wall thickness. Left ventricular systolic function is normal. The left ventricular ejection fraction is within the normal range. LVEF is 55-60%. The left ventricular diastolic function is normal. Right Ventricle The right ventricle is normal size. The right ventricular systolic function is normal. Atria The left atrium size is normal. The interatrial septum is intact with no evidence for an atrial septal defect. The right atrium size is normal. Aortic Valve Mild aortic valve sclerosis. No aortic regurgitation is present. There is no aortic valvular stenosis. Mitral Valve The mitral valve is normal in structure. [place] [address] 2 D/M-MODE ECHOCARDIOGRAM Name: CYNTHIA DUMONT Room: [address] IN .R.#: [id number] Admission: 01/21/21 Attend Phys: Shea Cuellar MD Discharge: Date of : 48 Date of Service: 01/21/21 1359 Report #: [id number] No evidence of mitral valve stenosis. Tricuspid Valve The tricuspid valve is normal in structure. No pulmonary hypertension. Trace tricuspid regurgitation. Pulmonic Valve The pulmonary valve is normal in structure. There is no pulmonic valvular regurgitation. Great Vessels The aortic root is normal in size. IVC is normal in size and collapses >50% with inspiration. Pericardium There is no pericardial effusion. <Conclusion> The left ventricle is normal size. Left ventricular systolic function is normal. The left ventricular ejection fraction is within the normal range. LVEF is 55-60%. The left ventricular diastolic function is normal. The right ventricle is normal size. The left atrium size is normal. Mild aortic valve sclerosis. No aortic regurgitation is present. There is no aortic valvular stenosis. The mitral valve is normal in structure. The tricuspid valve is normal in structure. IVC is normal in size and collapses >50% with inspiration. There is no pericardial effusion. There is normal LV segmental wall motion. The interatrial septum is intact with no evidence for an atrial septal defect. <ELECTRONICALLY SIGNED> By: David Bautista MD, FACC 01/21/21 1359 1359 1359 David Bautista MD, FACC /INF
[2021-01-22] VITALS (8 sets, daily range): BP systolic 125–201; BP diastolic 61–88
[2021-01-22 02:06] LABS: GLYCOHEMOGLOBIN (HGB A1C) 5.3 % (4.8-5.6)
[2021-01-22 04:51] LABS: ABSOLUTE EOSINOPHILS 0.2 thou/uL (0.0-0.7); ABSOLUTE LYMPHOCYTES 1.2 thou/uL (0.8-5.3); ABSOLUTE MONOCYTES 0.5 thou/uL (0.0-1.2); ABSOLUTE NEUTROPHILS 2.8 thou/uL (1.6-8.1); BASOPHILS 0.9 %; EOSINOPHILS 4.6 %; HEMATOCRIT 29.9 % (37.0-47.0); HEMOGLOBIN 10.2 gm/dL (12.0-15.0); LYMPHOCYTES 24.8 %; MCHC 34.1 g/dL (28.0-37.0); MCV 99.7 fL (80.0-100.0); NUCLEATED RBCS 0 /100WBC; PLATELET COUNT* 158 thou/uL (150-400); POLYS 58.7 %; RDW-CV 16.5 % (10.5-14.5); WBC 4.7 thou/uL (4.0-11.0)
[2021-01-22 04:53] LABS: ALBUMIN 3.1 g/dL (3.4-5.0); CALCIUM 8.6 mg/dL (8.5-10.1); CREATININE 1.1 mg/dL (0.6-1.3); POTASSIUM 3.7 mmol/L (3.5-5.1); TOTAL BILIRUBIN 0.3 mg/dL (<0.1-1.0); TOTAL PROTEIN 5.8 g/dL (6.4-8.2)
[2021-01-23 04:00] VITALS: BP 165/65
[2021-01-23 08:00] VITALS: BP 189/94
[2021-01-23 09:45] VITALS: BP 152/58
[2021-01-23] MEDS ORDERED: LOTENSIN20 MG PO (10:01)
[2021-01-23] MEDS ORDERED: LIPITOR 40 MG T40 M1 PO (10:01)
[2021-01-23] MEDS ORDERED: AUGMENTIN 875-1 EACH PO (10:01)
[2021-01-23] MEDS ORDERED: ADULT LOW DOSE81 MG PO (10:01)
[2021-01-23] MEDS ORDERED: CULTURELLE KID1 EAC1 PO (11:32)
[2021-01-23] MEDS ORDERED: ONDANSETRON HCL4 M2 PO (11:32)
[2021-01-23 11:40] VITALS: BP 152/58
== END 2021-01-23 12:35 | disposition home or self-care (01) | DRG 65 ==
LOC: M.ERS 19:04 → M.TBA-ER 21:23 → M.ORTHSURG 22:50 → M.2W 01-21 09:31
PROVIDERS: Internal Medicine; Personal Emergency Response Attendant; ADMIT Family Medicine; ATTEND Family Medicine
DX: I63.89 Other cerebral infarction (principal); A04.9 Bacterial intestinal infection, unspecified; E44.1 Mild protein-calorie malnutrition; I16.1 Hypertensive emergency; E78.00 Pure hypercholesterolemia, unspecified; H93.11 Tinnitus, right ear; I10 Essential (primary) hypertension; Z20.822 Contact with and (suspected) exposure to COVID-19; Z85.43 Personal history of malignant neoplasm of ovary; Z92.21 Personal history of antineoplastic chemotherapy; Z88.1 Allergy status to other antibiotic agents; Z88.5 Allergy status to narcotic agent; Z88.8 Allergy status to other drugs, medicaments and biological substances; Z79.899 Other long term (current) drug therapy; Z90.710 Acquired absence of both cervix and uterus; Z68.20 Body mass index [BMI] 20.0-20.9, adult

== ENCOUNTER → 2021-02-04 | Outpatient (CLI) | payer MEDICARE, OTHER ==
[~2021-02-04] MED LIST changes: +ADULT LOW DOSE81 MG PO; +CULTURELLE KID1 EAC1 PO; +LIPITOR 40 MG T40 M1 PO; +METOPROLOL TART25 MG PO
[2021-02-04 12:05] LABS: APTT 25.4 Seconds (25.0-31.3); INR 0.9
== END ==
LOC: M.LAB 11:00
PROVIDERS: ATTEND Internal Medicine Interventional Cardiology
DX: R00.2 Palpitations (principal)

== ENCOUNTER 2021-02-10 10:26 | Inpatient (IN) | payer MEDICARE, OTHER ==
[~2021-02-10] VITALS: Ht 154.9 cm; Wt 45.4 kg
--- NOTE | ~2021-02-10 | PROC ---
[address] [address] PROCEDURE REPORT Name: CYNTHIA DUMONT Room: [address] IN .#: [id number] Admission: 02/10/21 Attend Phys: Alvaro Osei MD Discharge: Date of : 48 Report #: [id number] THIS REPORT FOR: cc: Dasha Mcmillan Tammy RNP [facility],Medical Records Staff ~ For GI report, please see the Provation report in Perceptive 7 content. By: 1442Medical Records Staff JOSE MANUEL /DIEGO
[~2021-02-10 10:26] MED LIST changes: +NOXIFOL-D32500 UNIT PO; -VITAMIN D35000 UNI1 PO
[2021-02-10 10:35] VITALS: BP 187/62
[2021-02-10 11:18] LABS: ABSOLUTE EOSINOPHILS 0.3 thou/uL (0.0-0.7); ABSOLUTE LYMPHOCYTES 0.9 thou/uL (0.8-5.3); ABSOLUTE MONOCYTES 0.4 thou/uL (0.0-1.2); ABSOLUTE NEUTROPHILS 2.9 thou/uL (1.6-8.1); BASOPHILS 1.1 %; EOSINOPHILS 6.7 %; HEMATOCRIT 34.9 % (37.0-47.0); HEMOGLOBIN 11.5 gm/dL (12.0-15.0); LYMPHOCYTES 19.3 %; MCH 34.2 pg (26.0-34.0); MCHC 32.9 g/dL (28.0-37.0); MONOCYTES 8.2 %; MPV 8.1 fl. (7.2-11.1); NUCLEATED RBCS 0 /100WBC; PLATELET COUNT* 183 thou/uL (150-400); POLYS 64.7 %; RBC 3.36 mil/uL (4.20-5.00); WBC 4.5 thou/uL (4.0-11.0)
[2021-02-10 11:32] LABS: CREATININE 0.9 mg/dL (0.6-1.3); POTASSIUM 4.2 mmol/L (3.5-5.1)
[2021-02-10 11:37] LABS: ALBUMIN 3.6 g/dL (3.4-5.0); TOTAL BILIRUBIN 0.4 mg/dL (<0.1-1.0); TOTAL PROTEIN 6.7 g/dL (6.4-8.2)
[2021-02-10 12:49] LABS: URINE BILIRUBIN NEGATIVE (Negative); URINE BLOOD NEGATIVE (Negative); URINE CLARITY CLEAR; URINE COLOR YELLOW; URINE GLUCOSE-RANDOM NEGATIVE (Negative); URINE KETONES NEGATIVE (Negative); URINE LEUKOCYTES-REFLEX NEGATIVE (Negative); URINE NITRITE-REFLEX NEGATIVE (Negative); URINE PROTEIN NEGATIVE (Negative); URINE UROBILINOGEN 0.2 E.U./dl (0.2-1.0)
[2021-02-10] MEDS ORDERED: ONDANSETRON HCL4 M2 PO (13:06)
[2021-02-10] MEDS ORDERED: HYDRALAZINE 2525 MG PO (13:07)
[2021-02-10] MEDS ORDERED: CULTURELLE KID1 EAC1 PO (13:08)
[2021-02-10] MEDS ORDERED: METAFOLBIC TAB1 EACH PO (13:08)
[2021-02-10 15:07] VITALS: BP 194/74
[2021-02-10] MEDS ORDERED: BENAZEPRIL HCL20 MG PO (15:53)
[2021-02-10 15:55] VITALS: BP 209/73
[2021-02-10 20:00] VITALS: BP 202/88
[2021-02-11] VITALS (7 sets, daily range): BP systolic 156–202; BP diastolic 56–77
[2021-02-11 04:50] LABS: ABSOLUTE BASOPHILS 0.1 thou/uL (0.0-0.2); ABSOLUTE EOSINOPHILS 0.6 thou/uL (0.0-0.7); ABSOLUTE LYMPHOCYTES 1.4 thou/uL (0.8-5.3); ABSOLUTE MONOCYTES 0.4 thou/uL (0.0-1.2); ABSOLUTE NEUTROPHILS 1.9 thou/uL (1.6-8.1); BASOPHILS 1.2 %; EOSINOPHILS 13.3 %; HEMATOCRIT 28.3 % (37.0-47.0); LYMPHOCYTES 33.1 %; MCH 34.1 pg (26.0-34.0); MCHC 32.9 g/dL (28.0-37.0); MCV 103.6 fL (80.0-100.0); MONOCYTES 9.7 %; MPV 7.9 fl. (7.2-11.1); NUCLEATED RBCS 0 /100WBC; PLATELET COUNT* 160 thou/uL (150-400); POLYS 42.7 %; RBC 2.73 mil/uL (4.20-5.00); RDW-CV 18.9 % (10.5-14.5); WBC 4.3 thou/uL (4.0-11.0)
[2021-02-11 04:51] LABS: HEMOGLOBIN 9.3 gm/dL (12.0-15.0)
[2021-02-11 05:10] LABS: CALCIUM 8.6 mg/dL (8.5-10.1); CREATININE 0.9 mg/dL (0.6-1.3)
[2021-02-11 06:07] LABS: ANISOCYTOSIS 1+; OVALOCYTES Occasional; PLATELET ESTIMATE ADEQUATE; POIKILOCYTOSIS 1+
--- NOTE | 2021-02-11 10:26 | CON ---
[address] [address] CONSULTATION Name: CYNTHIA DUMONT Room: [address] IN .R.#: [id number] Admission: 02/10/21 Attend Phys: Alvaro Osei MD Discharge: Date of : 48 Report #: [id number] THIS REPORT FOR: cc: Dasha Mcmillan Tammy RNP Bodenstab, Johnna L. FNP ~ DOC #: [id number] cc: KELLY Sosa DATE OF CONSULTATION: 02/11/2021 REASON FOR CONSULTATION: Abdominal pain, diarrhea and abnormal CT scan. Please note at the time of this dictation, the patient was seen and physically examined by myself. HISTORY OF PRESENT ILLNESS: This 70-year-old female who presented to the Emergency Room with abdominal discomfort and diarrhea. She has a longstanding history of ovarian cancer in the past with reoccurrence and her last chemo was on 10/19. She states she has irritable bowel syndrome and she has bouts of constipation, which she can go anywhere from 3-5 days before she will take MiraLax and then she will have diarrhea for a couple of days and the cycle will repeat itself. She denied any nausea or vomiting, fever or chills upon admission; however, she has noted some issues with acid reflux and being a little upset to her stomach and very mild nausea off and on. The patient states her last EGD and colonoscopy were in 2018. Her colon showed diverticulosis and internal hemorrhoids. Her EGD showed esophagitis, hiatal hernia and she was dilated with a 54 [place] at that particular time. She has not been seen by us for since that time. She did develop Graves' disease and then developed some liver issues in which she was sent to Dr. Barragan at [facility] vice president sales for further evaluation of her liver, which she has been following since that time. ALLERGIES: INCLUDE CODEINE, CIPRO, PANTOPRAZOLE. MEDICATIONS FROM HOME: Include dicyclomine, atorvastatin, aspirin, benazepril, and Zofran. PAST MEDICAL HISTORY: Elevated cholesterol, lupus, factor V, hypertension, autoimmune thyroid disease, history of diverticulitis and ovarian cancer. PAST SURGICAL HISTORY: Hysterectomy, cholecystectomy. FAMILY HISTORY: [place] [address] CONSULTATION Name: MARCELTIFFANIEThomasCYNTHIA Room: [address]#: [id number] Admission: 02/10/21 Attend Phys: Alvaro Osei MD Discharge: Date of : 48 Report #: [id number] SOCIAL HISTORY: Denies any alcohol, tobacco, or illegal drug use. REVIEW OF SYSTEMS: Twelve point review of systems is essentially negative except what is mentioned in the HPI. PHYSICAL EXAMINATION: VITAL SIGNS: Temperature 36.6, pulse 53, respirations 18, blood pressure 143/68. HEART: Regular rate and rhythm. LUNGS: Diminished but clear. ABDOMEN: Soft, positive bowel sounds in all four quadrants with some mild tenderness in the lower and a little in the epigastric. LABORATORY AND DIAGNOSTIC DATA: Labs: Hemoglobin 9.3, white count 4.3, platelets 160. GFR 62, total bilirubin is 0.4, alkaline phosphatase 206, ALT 134 and AST is 63. CT scan showed diverticulosis with mild distal colitis noted. IMPRESSION: 1. Abdominal pain, lower and epigastric. 2. Abnormal CT showing mild distant colitis. 3. Gastroesophageal reflux disease. 4. Irritable bowel syndrome towards constipation. 5. Anemia. 6. History of ovarian cancer x 2, just finished chemo 10/19. 7. Factor V. PLAN: 1. EGD and flex sig tomorrow with Dr. Cha. We will start prep today. 2. The patient will need a better bowel regimen when she goes home. 3. Further recommendations to be made once the procedures have been performed. Thank you for allowing us to participate in this patient's care. Please do not hesitate to call with any questions regarding this consult. MD NURIS Kirk/VIRGILIO <ELECTRONICALLY SIGNED> By: KELLY Douglas 02/11/21 1026 0755 [id number] Douglas /colleen
--- NOTE | 2021-02-11 11:12 | EKG ---
[place] [address] ELECTROCARDIOGRAM REPORT Name: CYNTHIA DUMONT Room: [address] ADM IN [facility]#: [id number] Admission: 02/10/21 Attend Phys: Alvaro Osei, Discharge: Date of : 48 Date of Service: 02/10/21 1109 Report #: [id number] THIS REPORT FOR: //name// [facility] ED Test Date: 2021-02-10 Test Time: 11:09:57 Pat Name: CYNTHIA DUMONT Department: Room: [facility] Gender: F Design Tech: ELLY : 1950 Requested By: Lexx Castellon Order Number: [id number] MD: Kris Aburto Measurements Intervals [place] Rate: 64 P: 89 [place]: 139 QRS: 44 QRSD: 80 T: 57 QT: 379 QTc: 391 Interpretive Statements Sinus rhythm poor r wave progression Baseline wander in lead(s) II,III,aVF Compared to ECG 01/20/2021 19:11:48 no change Electronically Signed On 02-11-2021 11:12:16 CDT by Kris Aburto [email or web address] <ELECTRONICALLY SIGNED> By: Kris Aburto MD, FACC 02/11/21 1112 1109 1109 Kris Aburto MD, FACC /EPI
[2021-02-11 15:10] LABS: CALCIUM 8.8 mg/dL (8.5-10.1); CREATININE 0.9 mg/dL (0.6-1.3); POTASSIUM 3.7 mmol/L (3.5-5.1)
[2021-02-11 15:13] LABS: MAGNESIUM 1.8 mg/dL (1.8-2.4); PHOSPHORUS* 3.2 mg/dL (2.5-4.9)
[2021-02-12 04:24] VITALS: BP 139/49
[2021-02-12 05:08] LABS: HEMATOCRIT 30.3 % (37.0-47.0); HEMOGLOBIN 9.9 gm/dL (12.0-15.0); MCH 34.2 pg (26.0-34.0); MCHC 32.8 g/dL (28.0-37.0); MCV 104.4 fL (80.0-100.0); MPV 7.3 fl. (7.2-11.1); RBC 2.9 mil/uL (4.20-5.00); WBC 4.1 thou/uL (4.0-11.0)
[2021-02-12 05:27] LABS: CALCIUM 8.5 mg/dL (8.5-10.1); CREATININE 0.9 mg/dL (0.6-1.3); POTASSIUM 3.3 mmol/L (3.5-5.1)
[2021-02-12 08:00] VITALS: BP 153/63
[2021-02-12 11:38] VITALS: BP 167/63
[2021-02-12 16:24] VITALS: BP 140/61
[2021-02-12 21:00] VITALS: BP 155/63
[2021-02-13 08:00] VITALS: BP 174/74
[2021-02-13 08:49] LABS: HEMATOCRIT 31.2 % (37.0-47.0); HEMOGLOBIN 10.3 gm/dL (12.0-15.0); MCH 34.4 pg (26.0-34.0); MCV 104.1 fL (80.0-100.0); MPV 7.3 fl. (7.2-11.1); RDW-CV 18.5 % (10.5-14.5); WBC 4.1 thou/uL (4.0-11.0)
[2021-02-13 08:57] LABS: CALCIUM 9.3 mg/dL (8.5-10.1); CREATININE 0.8 mg/dL (0.6-1.3)
[2021-02-13 16:32] VITALS: BP 180/70
[2021-02-13] MEDS ORDERED: PEPCID20 MG PO (16:58)
[2021-02-13] MEDS ORDERED: MILK OF MA2400 MG/11 PO (17:09)
[2021-02-13] MEDS ORDERED: DULCOLAX5 MG PO (17:09)
[2021-02-13] MEDS ORDERED: METRONIDAZOLE500 M4 PO (17:23)
[2021-02-13 17:50] VITALS: BP 180/70
[2021-02-13 17:59] VITALS: BP 180/70
[2021-02-13 18:28] VITALS: BP 180/70
--- NOTE | 2021-02-14 17:06 | PATH ---
[address] [address] PATHOLOGY RPT PROCEDURE Name: BRANDY MARTINEZ Room: [address] IN .R.#: [id number] Admission: 02/10/21 Date of : 48 Discharge: 02/13/21 Report #: [id number] Path Case #: [id number] [facility] Accession Number: [id number] . 01 Material submitted: . duodenum - BIOPSY FOR DUODENITIS . 01 Clinician provided ICD-10: y . 01 Clinical history: . EGD AND COLONOSCOPY SIGMOIDOSCOPY . 02 Diagnosis: Biopsy for duodenitis: - Mild nonspecific active duodenitis, negative for granulomas, viral inclusions and dysplasia/adenomatous change. . (RAVEN:mml; 02/14/2021) [facility] 02/14/2021 1407 Local . 02 Electronically signed: . Taco Kaufman MD, Pathologist NPI- [id number] . 01 Gross description: . Received in formalin labeled "Brandy Martinez and biopsy for duodenitis". Received are 3 sanchez-granados soft tissue fragments ranging from 0.2-0.4 cm. Specimen is entirely submitted in cassette A1.(BLJ; 02/13/2021) [facility] 02/14/2021 1405 Local . 02 Pathologist provided ICD-10: K29.80 . 02 CPT . 202535 Specimen Comment: A courtesy copy of this report has been sent to [phone] Specimen Comment: [phone], Specimen Comment: Report sent to DR HILL,DR RICHMOND / DR PINEDA Performed at: [address] [id number] MD Melchor Morgan MD Phone: [phone] Performed at: [address] [id number] [place] [address] PATHOLOGY RPT PROCEDURE Name: BRANDY MARTINEZ Room: [address] IN M.R.#: [id number] Admission: 02/10/21 Date of : 48 Discharge: 02/13/21 Report #: [id number] Path Case #: [id number] MD Taco Kaufman MD Phone: [phone]
== END 2021-02-13 18:15 | disposition home or self-care (01) | DRG 372 ==
LOC: M.ERS 10:26 → M.2W 12:40 → M.TBA-ER 12:40 → M.ORTHSURG 15:07 → M.2W 15:33 → M.ORTHSURG 02-12 14:29
PROVIDERS: Emergency Medicine Emergency Medical Services; Internal Medicine; ADMIT Internal Medicine; ATTEND Internal Medicine
PROC: 0D758ZZ Dilation of Esophagus, Via Natural or Artificial Opening Endoscopic (ICD-10-PCS; principal; 2021-02-12)
PROC: 0DB98ZX Excision of Duodenum, Via Natural or Artificial Opening Endoscopic, Diagnostic (ICD-10-PCS; principal; 2021-02-12)
PROC: 0DJD8ZZ Inspection of Lower Intestinal Tract, Via Natural or Artificial Opening Endoscopic (ICD-10-PCS; principal; 2021-02-12)
DX: A04.9 Bacterial intestinal infection, unspecified (principal); R71.0 Precipitous drop in hematocrit; D68.51 Activated protein C resistance; C79.60 Secondary malignant neoplasm of unspecified ovary; E78.00 Pure hypercholesterolemia, unspecified; I10 Essential (primary) hypertension; E87.6 Hypokalemia; K44.9 Diaphragmatic hernia without obstruction or gangrene; K21.00 Gastro-esophageal reflux disease with esophagitis, without bleeding; R13.10 Dysphagia, unspecified; K64.8 Other hemorrhoids; K57.30 Diverticulosis of large intestine without perforation or abscess without bleeding; R93.3 Abnormal findings on diagnostic imaging of other parts of digestive tract; K26.9 Duodenal ulcer, unspecified as acute or chronic, without hemorrhage or perforation; K58.1 Irritable bowel syndrome with constipation; Z20.822 Contact with and (suspected) exposure to COVID-19; Z85.43 Personal history of malignant neoplasm of ovary; Z90.49 Acquired absence of other specified parts of digestive tract; Z88.1 Allergy status to other antibiotic agents; Z90.710 Acquired absence of both cervix and uterus; Z88.5 Allergy status to narcotic agent; Z88.8 Allergy status to other drugs, medicaments and biological substances; Z79.82 Long term (current) use of aspirin; Z79.899 Other long term (current) drug therapy; Z92.21 Personal history of antineoplastic chemotherapy

== ENCOUNTER → 2021-05-01 | Outpatient (CLI) | payer MEDICARE, OTHER ==
[~2021-05-01] MED LIST changes: +BENAZEPRIL HCL20 MG PO; +DULCOLAX5 MG PO; +HYDRALAZINE 2525 MG PO; +METAFOLBIC TAB1 EACH PO; +METRONIDAZOLE500 M4 PO; +MILK OF MA2400 MG/11 PO
== END ==
LOC: M.RAD 10:25
PROVIDERS: ATTEND Registered Nurse Diabetes Educator
DX: Z12.31 Encounter for screening mammogram for malignant neoplasm of breast (principal)

== ENCOUNTER → 2021-05-15 | Outpatient (CLI) | payer MEDICARE, OTHER | LOC: M.LAB 14:33 | DX: E05.00 Thyrotoxicosis with diffuse goiter without thyrotoxic crisis or storm (principal) ==

== ENCOUNTER → 2021-05-27 | Outpatient (CLI) | payer MEDICARE, OTHER | LOC: M.CT 10:32 | PROVIDERS: ATTEND Registered Nurse Diabetes Educator | DX: K57.30 Diverticulosis of large intestine without perforation or abscess without bleeding (principal); R10.9 Unspecified abdominal pain ==

== ENCOUNTER 2021-06-20 18:11 | Emergency (ER) | payer MEDICARE, OTHER ==
[~2021-06-20] VITALS: Ht 154.9 cm; Wt 40.8 kg
[2021-06-20] MEDS ORDERED: ZEJULA100 MG PO (18:26)
[2021-06-20 19:01] LABS: URINE BILIRUBIN NEGATIVE (Negative); URINE BLOOD NEGATIVE (Negative); URINE CLARITY CLEAR; URINE COLOR YELLOW; URINE GLUCOSE-RANDOM NEGATIVE (Negative); URINE KETONES NEGATIVE (Negative); URINE LEUKOCYTES-REFLEX TRACE (Negative); URINE NITRITE-REFLEX NEGATIVE (Negative); URINE PROTEIN NEGATIVE (Negative); URINE SPECIFIC GRAVITY 1.015 (1.005-1.030); URINE UROBILINOGEN 0.2 E.U./dl (0.2-1.0)
[2021-06-20 19:08] LABS: MUCUS None Seen strn/LPF (None Seen); SQUAMOUS 4-10 Moderate /LPF (0-3); URINE WBC-REFLEX 0-5 Rare /HPF (0-5)
[2021-06-20 19:09] LABS: CRYSTALS None Seen /LPF (None Seen); HYALINE CASTS 0-3 Few /LPF (None Seen); URINE RBC None Seen /HPF (0-2)
[2021-06-20 19:10] LABS: BACTERIA-REFLEX 1-9 Few /HPF (None Seen)
[2021-06-20 19:43] LABS: ABSOLUTE BASOPHILS 0.1 thou/uL (0.0-0.2); ABSOLUTE EOSINOPHILS 0.1 thou/uL (0.0-0.7); ABSOLUTE LYMPHOCYTES 1.4 thou/uL (0.8-5.3); ABSOLUTE MONOCYTES 0.6 thou/uL (0.0-1.2); ABSOLUTE NEUTROPHILS 5.7 thou/uL (1.6-8.1); BASOPHILS 0.9 %; EOSINOPHILS 1.8 %; HEMATOCRIT 34.5 % (37.0-47.0); HEMOGLOBIN 11.3 gm/dL (12.0-15.0); LYMPHOCYTES 17.5 %; MCH 34.6 pg (26.0-34.0); MCHC 32.8 g/dL (28.0-37.0); MCV 105.7 fL (80.0-100.0); MONOCYTES 7.3 %; MPV 7.4 fl. (7.2-11.1); NUCLEATED RBCS 0 /100WBC; PLATELET COUNT* 257 thou/uL (150-400); POLYS 72.5 %; RBC 3.27 mil/uL (4.20-5.00); RDW-CV 18.9 % (10.5-14.5); WBC 7.9 thou/uL (4.0-11.0)
[2021-06-20 19:46] LABS: CALCIUM 8.9 mg/dL (8.5-10.1); CREATININE 1.1 mg/dL (0.6-1.3); POTASSIUM 4.7 mmol/L (3.5-5.1)
[2021-06-20 19:50] LABS: ALBUMIN 3.9 g/dL (3.4-5.0); TOTAL BILIRUBIN 0.4 mg/dL (<0.1-1.0); TOTAL PROTEIN 6.6 g/dL (6.4-8.2)
[2021-06-20 21:24] VITALS: BP 160/90
== END 2021-06-20 21:26 | disposition home or self-care (01) ==
LOC: M.ERS 18:11
PROVIDERS: Nurse Practitioner Family
DX: K59.00 Constipation, unspecified (principal); E78.00 Pure hypercholesterolemia, unspecified; I10 Essential (primary) hypertension; Z90.711 Acquired absence of uterus with remaining cervical stump; Z90.49 Acquired absence of other specified parts of digestive tract; Z85.43 Personal history of malignant neoplasm of ovary; Z79.899 Other long term (current) drug therapy; Z79.82 Long term (current) use of aspirin; Z88.1 Allergy status to other antibiotic agents; Z88.5 Allergy status to narcotic agent; Z88.8 Allergy status to other drugs, medicaments and biological substances

== ENCOUNTER → 2021-07-11 | Outpatient (CLI) | payer MEDICARE, OTHER ==
[~2021-07-11] MED LIST changes: +ZEJULA100 MG PO
--- NOTE | 2021-07-26 08:27 | PF ---
[address] [address] PULMONARY FUNCTION REPORT Name: CYNTHIA DUMONT Vanessa Room: [facility]#: [id number] Admission: 07/11/21 Attend Phys: SUJAHTA Grey Discharge: Date of : 48 Report #: [id number] THIS REPORT FOR: cc: Dasha Mcmillan,Philip Balderas MD ~ DATE OF VISIT: 07/11/2021 PULMONARY FUNCTION TEST The FEV1/FVC ratio is normal at 85% with an FVC normal at 92%. FEV1 is also normal at 104%. FEF 25/75 is normal at 101%. After the administration of a bronchodilator, there is no significant change in any of the other values. The FEF 25-75 does increase to 45%. The patient's post-bronchodilator FEV1 is 2.05 liters. The total lung capacity is normal at 95% with residual volume normal at 94%. The DLCO as adjusted for hemoglobin is decreased to 53%. IMPRESSION: 1. Spirometry is normal. There is 45% increase in FEF 25/75 noted after the administration of a bronchodilator. This can also occur in normal individuals, but is more common in individuals with a minimal underlying obstructive lung disease. Clinical correlation advised. By itself, this value is not abnormal. 2. Normal lung volumes. 3. The DLCO as adjusted for hemoglobin decreased to 53%. <ELECTRONICALLY SIGNED> By: Philip Munoz MD 07/26/21 0827 2149 2214Achyna Munoz MD /colleen
== END ==
LOC: M.PUL 14:00
PROVIDERS: ATTEND Registered Nurse Diabetes Educator
DX: R06.09 Other forms of dyspnea (principal)

== ENCOUNTER 2021-07-14 17:20 | Emergency (ER) | payer MEDICARE, OTHER ==
[~2021-07-14] VITALS: Ht 154.9 cm; Wt 41.3 kg
[2021-07-14 18:04] LABS: ABSOLUTE BASOPHILS 0.1 thou/uL (0.0-0.2); ABSOLUTE EOSINOPHILS 0.1 thou/uL (0.0-0.7); ABSOLUTE LYMPHOCYTES 1.4 thou/uL (0.8-5.3); ABSOLUTE MONOCYTES 0.6 thou/uL (0.0-1.2); ABSOLUTE NEUTROPHILS 3.1 thou/uL (1.6-8.1); HEMATOCRIT 29.7 % (37.0-47.0); HEMOGLOBIN 10.2 gm/dL (12.0-15.0); LYMPHOCYTES 26.4 %; MCH 37.5 pg (26.0-34.0); MCHC 34.2 g/dL (28.0-37.0); MCV 109.4 fL (80.0-100.0); MONOCYTES 11.2 %; MPV 6.5 fl. (7.2-11.1); NUCLEATED RBCS 0 /100WBC; PLATELET COUNT* 253 thou/uL (150-400); POLYS 59.4 %; RBC 2.72 mil/uL (4.20-5.00); RDW-CV 17.5 % (10.5-14.5); WBC 5.2 thou/uL (4.0-11.0)
[2021-07-14 18:13] LABS: CALCIUM 8.5 mg/dL (8.5-10.1); CREATININE 1.3 mg/dL (0.6-1.3); POTASSIUM 5.3 mmol/L (3.5-5.1)
[2021-07-14 18:17] LABS: ALBUMIN 3.5 g/dL (3.4-5.0); TOTAL BILIRUBIN 0.3 mg/dL (<0.1-1.0); TOTAL PROTEIN 6.1 g/dL (6.4-8.2)
[2021-07-14 18:24] VITALS: BP 156/70
== END 2021-07-14 18:25 | disposition home or self-care (01) ==
LOC: M.ERS 17:20
PROVIDERS: Family Medicine
DX: R42 Dizziness and giddiness (principal); I10 Essential (primary) hypertension; Z90.710 Acquired absence of both cervix and uterus; Z90.49 Acquired absence of other specified parts of digestive tract; Z79.899 Other long term (current) drug therapy; Z88.5 Allergy status to narcotic agent; Z88.8 Allergy status to other drugs, medicaments and biological substances; Z88.1 Allergy status to other antibiotic agents

== ENCOUNTER 2021-08-04 00:38 | Emergency (ER) | payer MEDICARE, OTHER ==
[~2021-08-04] VITALS: Ht 154.9 cm; Wt 41.7 kg
[2021-08-04 01:06] LABS: URINE BILIRUBIN NEGATIVE (Negative); URINE BLOOD NEGATIVE (Negative); URINE CLARITY CLEAR; URINE COLOR YELLOW; URINE GLUCOSE-RANDOM NEGATIVE (Negative); URINE KETONES NEGATIVE (Negative); URINE LEUKOCYTES-REFLEX NEGATIVE (Negative); URINE NITRITE-REFLEX NEGATIVE (Negative); URINE PROTEIN TRACE (Negative); URINE SPECIFIC GRAVITY 1.015 (1.005-1.030); URINE UROBILINOGEN 0.2 E.U./dl (0.2-1.0)
[2021-08-04 01:35] LABS: ABSOLUTE EOSINOPHILS 0.1 thou/uL (0.0-0.7); ABSOLUTE LYMPHOCYTES 1.4 thou/uL (0.8-5.3); ABSOLUTE MONOCYTES 0.5 thou/uL (0.0-1.2); ABSOLUTE NEUTROPHILS 2.8 thou/uL (1.6-8.1); BASOPHILS 0.9 %; EOSINOPHILS 1.6 %; HEMATOCRIT 33.7 % (37.0-47.0); HEMOGLOBIN 11.3 gm/dL (12.0-15.0); LYMPHOCYTES 28.7 %; MCH 37.9 pg (26.0-34.0); MCHC 33.6 g/dL (28.0-37.0); MCV 112.9 fL (80.0-100.0); MONOCYTES 11.2 %; MPV 6.7 fl. (7.2-11.1); NUCLEATED RBCS 0 /100WBC; PLATELET COUNT* 210 thou/uL (150-400); POLYS 57.6 %; RBC 2.98 mil/uL (4.20-5.00); WBC 4.8 thou/uL (4.0-11.0)
[2021-08-04 01:45] LABS: CALCIUM 8.9 mg/dL (8.5-10.1); CREATININE 1.1 mg/dL (0.6-1.3); POTASSIUM 4.8 mmol/L (3.5-5.1)
[2021-08-04 01:50] LABS: ALBUMIN 3.5 g/dL (3.4-5.0); TOTAL BILIRUBIN 0.3 mg/dL (<0.1-1.0); TOTAL PROTEIN 6.3 g/dL (6.4-8.2)
[2021-08-04 04:08] VITALS: BP 152/56
== END 2021-08-04 04:11 | disposition home or self-care (01) ==
LOC: M.ERS 00:38
PROVIDERS: Emergency Medicine
DX: R10.31 Right lower quadrant pain (principal); R11.0 Nausea; E78.00 Pure hypercholesterolemia, unspecified; I10 Essential (primary) hypertension; Z85.43 Personal history of malignant neoplasm of ovary; Z90.710 Acquired absence of both cervix and uterus; Z90.49 Acquired absence of other specified parts of digestive tract; Z79.899 Other long term (current) drug therapy; Z79.82 Long term (current) use of aspirin; Z88.1 Allergy status to other antibiotic agents; Z88.8 Allergy status to other drugs, medicaments and biological substances; Z88.5 Allergy status to narcotic agent

== ENCOUNTER 2021-09-24 13:01 | Emergency (ER) | payer MEDICARE, OTHER ==
[~2021-09-24] VITALS: Ht 154.9 cm; Wt 41.7 kg
[2021-09-24] MEDS ORDERED: BENAZEPRIL HCL20 MG PO ×2 (13:16)
[2021-09-24 19:42] LABS: ABSOLUTE LYMPHOCYTES 1.2 thou/uL (0.8-5.3); ABSOLUTE MONOCYTES 0.7 thou/uL (0.0-1.2); ABSOLUTE NEUTROPHILS 4.3 thou/uL (1.6-8.1); BASOPHILS 0.5 %; HEMOGLOBIN 12.6 gm/dL (12.0-15.0); RDW-CV 13.6 % (10.5-14.5); WBC 6.3 thou/uL (4.0-11.0)
[2021-09-24 19:44] LABS: EOSINOPHILS 0.7 %; HEMATOCRIT 37.2 % (37.0-47.0); LYMPHOCYTES 19.3 %; MCH 37.1 pg (26.0-34.0); MCHC 33.8 g/dL (28.0-37.0); MCV 109.7 fL (80.0-100.0); MONOCYTES 11.2 %; MPV 6.8 fl. (7.2-11.1); NUCLEATED RBCS 0 /100WBC; PLATELET COUNT* 260 thou/uL (150-400); POLYS 68.3 %; RBC 3.39 mil/uL (4.20-5.00)
[2021-09-24 19:57] LABS: URINE BILIRUBIN NEGATIVE (Negative); URINE BLOOD NEGATIVE (Negative); URINE CLARITY CLEAR; URINE COLOR YELLOW; URINE GLUCOSE-RANDOM NEGATIVE (Negative); URINE KETONES NEGATIVE (Negative); URINE LEUKOCYTES-REFLEX 1+ (Negative); URINE NITRITE-REFLEX NEGATIVE (Negative); URINE PROTEIN 1+ (Negative); URINE UROBILINOGEN 0.2 E.U./dl (0.2-1.0)
[2021-09-24 19:58] LABS: ALBUMIN 3.7 g/dL (3.4-5.0); CREATININE 1.2 mg/dL (0.6-1.3); POTASSIUM 4.5 mmol/L (3.5-5.1); TOTAL BILIRUBIN 0.4 mg/dL (<0.1-1.0); TOTAL PROTEIN 6.7 g/dL (6.4-8.2)
[2021-09-24 20:03] LABS: BACTERIA-REFLEX 1-9 Few /HPF (None Seen); CASTS None Seen /LPF (None Seen); CRYSTALS None Seen /LPF (None Seen); MUCUS 0-3 Light strn/LPF (None Seen); SQUAMOUS 4-10 Moderate /LPF (0-3); URINE RBC 0-2 Rare /HPF (0-2); URINE WBC-REFLEX 6-15 Few /HPF (0-5)
[2021-09-24 22:53] VITALS: BP 102/44
--- NOTE | 2021-09-25 08:59 | EKG ---
[place] [address] ELECTROCARDIOGRAM REPORT Name: CYNTHIA DUMONT Room: [facility]#: [id number] Admission: 09/24/21 Attend Phys: Discharge: 09/24/21 Date of : 48 Date of Service: 09/24/211916 Report #: [id number] THIS REPORT FOR: //name// [facility] ED Test Date: 2021-09-24 Test Time: 19:17:10 Pat Name: CYNTHIA DUMONT Department: Room: Gender: F Phd Intern: : 1950 Requested By: Ally Wu Order Number: [id number] MD: Kris Aburto Measurements Intervals [place] Rate: 75 P: 90 [place]: 119 QRS: 59 QRSD: 77 T: 82 QT: 349 QTc: 390 Interpretive Statements Sinus rhythm Borderline short [place] interval Anterior infarct, old Compared to ECG 02/10/2021 11:09:57 no change Electronically Signed On 09-25-2021 8:59:41 [employer] by Kris Aburto [email or web address] <ELECTRONICALLY SIGNED> By: Kris Aburto MD, [facility] 09/25/21 0859 16 16 Kris Aburto MD, [facility] /EPI
== END 2021-09-24 22:53 | disposition home or self-care (01) ==
LOC: M.ERS 13:01
PROVIDERS: Nurse Practitioner Family
DX: I10 Essential (primary) hypertension (principal); E05.90 Thyrotoxicosis, unspecified without thyrotoxic crisis or storm; Z88.1 Allergy status to other antibiotic agents; Z88.5 Allergy status to narcotic agent; Z79.899 Other long term (current) drug therapy; Z79.82 Long term (current) use of aspirin; Z86.73 Personal history of transient ischemic attack (TIA), and cerebral infarction without residual deficits